=== PATIENT | female | born 1980 | race Caucasian/White ===

== ENCOUNTER 2018-05-08 05:10 | Emergency (ER) | payer BC, MEDICAID ==
--- NOTE | 2018-05-08 05:39 | ED Physician Chart ---
ED Chief Complaint/HPI - Patient Information Date Seen:: 05/08/18 Time Seen:: 05:25 Chief Complaint:: pain right knee area History of Present Illness:: Patient's had pain in her right knee area for last 6 months. 2-1/2 days ago she had low back pain and pleuritic chest pain for about 1-1/2 days which subsided spontaneously. Patient ran out of [facility] 2 1/2 weeks ago. 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 Allergies:: Allergies Allergy/AdvReac Type Severity Reaction Status Date / Time No Known Allergies Allergy Verified 05/08/18 05:19 Vitals:: Vital Signs - 8 hr 05/08/18 05:22 Temp 98.1 F HR 106 RR 20 BP 147/90 O2 Sat % 98 Historian:: Patient Review:: Nurse's Note Reviewed <Reji Campbell - Last Filed: 05/08/18 05:42> - Patient Information Allergies:: Allergies Allergy/AdvReac Type Severity Reaction Status Date / Time No Known Allergies Allergy Verified 05/08/18 05:19 Vitals:: Vital Signs - 8 hr 05/08/18 05/08/18 05/08/18 05:22 07:54 09:37 Temp 98.1 F 98.2 F 98.2 F HR 106 74 90 RR 20 22 BP 147/90 127/72 O2 Sat % 98 100 <J Carlos Case - Last Filed: 05/08/18 09:53> ED Review of Systems - Review of Systems General/Constitutional: No fever, No chills Skin: No skin lesions Head: No headache Eyes: No loss of vision ENT: No earache Neck: No neck pain, No swelling Cardio Vascular: No chest pain, No palpitations Pulmonary: Other (pleuritic chest pain was subsided) GI: No nausea, No vomiting, No diarrhea G/U: No dysuria Musculoskeletal: Bone or joint pain, Back pain Endocrine: No polyuria Psychiatric: No prior psych history, No depression, No anxiety Hematopoietic: No bruising, No lymphadenopathy Allergic/Immuno: No urticaria Neurological: No syncope, No focal symptoms <Reji Campbell - Last Filed: 05/08/18 05:42> ED Past Medical History - Past Medical History Past Medical History: Other (anemia) Family History: Other (adopted) Social History: Non Smoker, No Alcohol Surgical History: Cholecystectomy, , other ( section) Psychiatricy History: None Medication: Reviewed <Reji Campbell - Last Filed: 05/08/18 05:42> ED Physical Exam - Physical Examination General/Constitutional: Well-developed, well-nourished, Alert, No distress Other Gen/Cons comments:: Easy unlabored respirations; speaks normally Head: Atraumatic Eyes: Lids, conjuctiva normal, PERRL Skin: Nl inspection, No rash, No skin lesions, No ecchymosis ENMT: External ears, nose nl, TM canals nl, Nasal exam nl, Lips, teeth, gums nl Neck: No nuchal rigidity Respiratory: Nl effort/Exclusion, Clear to Auscultation Cardio Vascular: RRR, No murmur, gallop, rubs GI: No tenderness/rebounding/guarding, No organomegaly, No hernia, Normal BS's : No CVA tenderness Other Extremities comments:: No redness; 1.5 out of 4 bilateral pre-tibial pitting edema Neuro/Psych: No focal deficits <Reji Campbell - Last Filed: 05/08/18 05:42> ED Labs/Radiology/EKG Results - Lab Results Results: Laboratory Tests 05/08/18 05/08/18 05/08/18 05:40 05:40 05:40 WBC 6.5 RBC 3.99 Hgb 7.5 L* Hct 24.1 L MCV 60.5 L MCH 18.9 L MCHC Differential 31.1 RDW 17.8 Plt Count 481 H MPV 6.4 Add Manual Diff YES Band Neutrophils % 0 Neutrophils (Manual) 58 Lymphocytes 37 Monocytes 4 Eosinophils 1 Basophils 0 PT 9.9 INR 0.95 PTT (Actin FS) 22.5 L Sodium 138 Potassium 3.6 Chloride 105 Carbon Dioxide 25.0 Anion Gap 11.6 BUN 16 Creatinine 0.6 Est GFR ( Amer) > 60.0 Est GFR (Non-Af Amer) > 60.0 BUN/Creatinine Ratio 26.7 Glucose 129 H Calcium 9.3 Comments:: Reviewed - Radiology Results Comments:: U/S: no DVT <J Carlos Case - Last Filed: 05/08/18 09:53> ED Assessment - Assessment General Assessment: Endorsed to Dr. Case at 0700. <Reji Campbell - Last Filed: 05/08/18 05:42> ED Septic Shock - <6hrs of presentation: Vital Signs: Vital Signs - 8 hr 05/08/18 05:22 Temp 98.1 F HR 106 RR 20 BP 147/90 O2 Sat % 98 <Reji Campbell - Last Filed: 05/08/18 05:42> - . Is Septic Shock (SBP<90, OR Lactate>4 mmol\L) present?: No - <6hrs of presentation: Vital Signs: Vital Signs - 8 hr 05/08/18 05/08/18 05/08/18 05:22 07:54 09:37 Temp 98.1 F 98.2 F 98.2 F HR 106 74 90 RR 20 22 BP 147/90 127/72 O2 Sat % 98 100 <J Carlos Case - Last Filed: 05/08/18 09:53> ED Reassessment (Disposition) - Reassessment Reassessment:: pt has no evidence of bleeding anywhere; pt is asymptomatic upon discharge Reassessment Condition:: Improved - Diagnosis Diagnosis:: Leg Sprains and Strains; Anemia; Chest Pain-resolved; Right Knee Pain-resolved; Back Pain-resolved: Sprains and Strains; MS Type Chest Pain-resolved; Costochondritis - Aftercare/Follow up Instructions Aftercare/Follow-Up Instructions:: Counseled pt regarding lab results/diagnosis & need follow up, Refer to Discharge Instructions, Counseled pt & family regarding lab results/diagnosis & need follow up - Patient Disposition Discharge/Transfer:: Home Condition at Disposition:: Stable, Improved (U/S Care Instructions; Take all medications as prescribed; Be Compliant with all Medications; RTER prn if existing s/s reoccur and/or get worse and/or any other new s/s occur; ACIs given for all above Dx; Refer to Merchandise Deliverer/Shoe Dresser/Vascular Surgeon/ Ring Rolling Machine Operator MARCIO; F/U with PMD Today or as needed; RTER prn if concerned) <J Carlos Case - Last Filed: 05/08/18 09:53>
[2018-05-08 05:47] LABS: RED BLOOD COUNT 3.99 Mil/cmm (3.80-5.10)
[2018-05-08 05:49] LABS: HEMATOCRIT 24.1 % (41.0-60); MEAN CORPUSCULAR HEMOGLOBIN 18.9 pg (27.0-31.0); MEAN CORPUSCULAR HGB CONC 31.1 pg (28.0-36.0); MEAN PLATELET VOLUME 6.4 fl; PLATELET COUNT 481 Th/cmm (150-400); RED CELL DISTRIBUTION WIDTH 17.8 % (11.5-20.0); WHITE BLOOD COUNT 6.5 Th/cmm (4.8-10.8)
[2018-05-08 05:55] LABS: HEMOGLOBIN 7.5 gm/dL (12-16); MEAN CELL VOLUME 60.5 fl (81-100)
[2018-05-08 06:03] LABS: INR 0.95 (0.5-1.4); PROTHROMBIN TIME (TEST) 9.9 SECONDS (9.5-11.5)
[2018-05-08 06:04] LABS: ANION GAP 11.6 (7.0-16.0); BUN - UREA NITROGEN 16 mg/dL (7-25); CALCIUM SERUM 9.3 mg/dL (8.6-10.3); CHLORIDE 105 mEq/L (98-107); CREATININE - SERUM 0.6 mg/dL (0.6-1.2); GFR AFRICAN-AMERICAN > 60.0 ml/min (>90); GFR NON AFRICAN-AMERICAN > 60.0 ml/min; GLUCOSE 129 mg/dL (70-105); POTASSIUM SERUM 3.6 mEq/L (3.5-5.1); SODIUM SERUM 138 mEq/L (136-145)
[2018-05-08 06:40] LABS: BAND NEUTROPHILE 0 % (0-10); BASOPHIL 0 % (0-3); EOSINOPHIL 1 % (0-5); LYMPHOCYTE 37 % (20-50); MONOCYTE 4 % (2-10); NEUTROPHILS 58 % (40-80)
--- NOTE | 2018-05-08 12:09 | Diagnostic Imaging Report ---
Bilateral lower extremity Doppler venous ultrasound exam HISTORY: Pain/swelling Sonographic sector images were obtained through the deep venous systems of both legs. Associated Doppler data was obtained. The exam demonstrates patency of the common femoral, superficial femoral, popliteal, and posterior tibial veins bilaterally. Specifically, no thrombus is seen. There are normal compressibility and augmentation responses. IMPRESSION: Negative exam for deep vein thrombophlebitis.
== END 2018-05-08 09:30 | disposition home or self-care (01) ==
LOC: ER 05:10
DX: S83.91XA Sprain of unspecified site of right knee, initial encounter (principal); S86.911A Strain of unspecified muscle(s) and tendon(s) at lower leg level, right leg, initial encounter; M94.0 Chondrocostal junction syndrome [Tietze]; D64.9 Anemia, unspecified; Z90.49 Acquired absence of other specified parts of digestive tract; Z98.890 Other specified postprocedural states; X58.XXXA Exposure to other specified factors, initial encounter; Y93.89 Activity, other specified; Y92.89 Other specified places as the place of occurrence of the external cause; Y99.8 Other external cause status
CPT/HCPCS: 36415-UA; 80048-TC; 85007-TC; 85025-TC; 85610-TC; 85730-TC; 93970-TC-50; Z7502

== ENCOUNTER 2018-08-19 05:25 | Emergency (ER) | payer BC, MEDICAID ==
[2018-08-19 05:48] LABS: URINE SOURCE CLEAN C
[2018-08-19 05:58] LABS: URINE BILIRUBIN SMALL (NEGATIVE); URINE BLOOD NEGATIVE (NEGATIVE); URINE GLUCOSE (UA) NEGATIVE (NEGATIVE); URINE KETONE TRACE mg/dL (NEGATIVE); URINE LEUKOCYTE ESTERASE MODERATE (NEGATIVE); URINE MICROSCOPIC INDICATED? YES; URINE NITRATE POSITIVE (NEGATIVE); URINE PROTEIN TRACE mg/dL (NEGATIVE)
[2018-08-19 06:01] LABS: HEMATOCRIT 24.4 % (41.0-60); MEAN CORPUSCULAR HEMOGLOBIN 17.6 pg (27.0-31.0); MEAN CORPUSCULAR HGB CONC 30.1 pg (28.0-36.0); MEAN PLATELET VOLUME 7.2 fl; PLATELET COUNT 359 Th/cmm (150-400); RED BLOOD COUNT 4.16 Mil/cmm (3.80-5.10); RED CELL DISTRIBUTION WIDTH 19.1 % (11.5-20.0); WHITE BLOOD COUNT 6.4 Th/cmm (4.8-10.8)
[2018-08-19 06:02] LABS: URINE CLARITY HAZY (CLEAR); URINE COLOR YELLOW
[2018-08-19 06:09] LABS: URINE RBC NONE SEEN /hpf (0-5)
--- NOTE | 2018-08-19 06:09 | ED Physician Chart ---
ED Chief Complaint/HPI - Patient Information Date Seen:: 08/19/18 Time Seen:: 05:43 Chief Complaint:: abdominal pain History of Present Illness:: this is a 38 yo female with lower abdominal pain, pain on urination with nausea but no vomiting. the pain is 6/10 and it radiates to the back. she denies fever and . Allergies:: Allergies Allergy/AdvReac Type Severity Reaction Status Date / Time No Known Allergies Allergy Verified 05/08/18 05:19 Vitals:: Vital Signs - 8 hr 08/19/18 05:30 Temp 98.2 F HR 92 RR 19 BP 131/85 O2 Sat % 100 Historian:: Patient Review:: Nurse's Note Reviewed, Old Chart Reviewed ED Review of Systems - Review of Systems General/Constitutional: No fever, No chills, No weight loss, No weakness, No diaphoresis, No edema, No loss of appetite Skin: No skin lesions, No rash, No bruising Head: No headache, No light-headedness Eyes: No loss of vision, No pain, No diplopia ENT: No earache, No nasal drainage, No sore throat, No tinnitus Neck: No neck pain, No swelling, No thyromegaly, No stiffness, No mass noted Cardio Vascular: No chest pain, No palpitations, No PND, No orthopnea, No edema Pulmonary: No SOB, No cough, No sputum, No wheezing GI: Nausea, No vomiting, No diarrhea, Pain (lower abdomen), No melena, No hematochezia, No constipation, No hematemesis G/U: Dysuria, No frequency, No hematuria Musculoskeletal: No bone or joint pain, No back pain, No muscle pain Endocrine: No polyuria, No polydipsia Psychiatric: No prior psych history, No depression, No anxiety, No suicidal ideation Hematopoietic: No bruising, No lymphadenopathy Allergic/Immuno: No urticaria, No angioedema Neurological: No syncope, No focal symptoms, No weakness, No paresthesia, No headache, No seizure, No dizziness, No confusion, No vertigo ED Past Medical History - Past Medical History Obtainable: Yes Past Medical History: DVT/PE, Other (anemia) Family History: None Social History: Non Smoker, No Alcohol, No Drug Use, Employed Surgical History: Family Medical History - Family Member Mother History Unknown: Yes ED Physical Exam - Physical Examination General/Constitutional: Awake, Well-developed, well-nourished, Alert, No distress, GCS 15, Non-toxic appearing, Ambulatory Head: Atraumatic Eyes: Lids, conjuctiva normal, PERRL, EOMI Skin: Nl inspection, No rash, No skin lesions, No ecchymosis, Well hydrated, No lymphadenopathy ENMT: External ears, nose nl, Nasal exam nl, Lips, teeth, gums nl Neck: Nontender, Full ROM w/o pain, No JVD, No nuchal rigidity, No bruit, No mass, No stridor Respiratory: Nl effort/Exclusion, Clear to Auscultation, No Wheeze/Rhonchi/Rales Cardio Vascular: RRR, No murmur, gallop, rubs, NL S1 S2 GI: No tenderness/rebounding/guarding (lower abdominal tender without rebound), No organomegaly, No hernia, Normal BS's, Nondistended, No mass/bruits, No McBurney tenderness : No CVA tenderness Other comments:: bladder area tenderness Extremities: No tenderness or effusion, Full ROM, normal strength in all extremities, No edema, Normal digits & nails Neuro/Psych: Alert/oriented, DTR's symmetric, Normal sensory exam, Normal motor strength, Judgement/insight normal, Mood normal, Normal gait, No focal deficits Misc: Normal back, No paraspinal tenderness ED Labs/Radiology/EKG Results - Lab Results Results: Laboratory Tests 08/19/18 05:35 Urine Color YELLOW Urine Clarity HAZY Urine pH 6.0 Ur Specific [place] >= 1.030 Urine Protein TRACE Urine Glucose (UA) NEGATIVE Urine Ketones TRACE Urine Blood NEGATIVE Urine Nitrate POSITIVE H Urine Bilirubin SMALL H Urine Urobilinogen 2.0 Ur Leukocyte Esterase MODERATE H ED Assessment - Assessment General Assessment: urinary tract infection ED Septic Shock - . Is Septic Shock (SBP<90, OR Lactate>4 mmol\L) present?: No - <6hrs of presentation: Vital Signs: Vital Signs - 8 hr 08/19/18 05:30 Temp 98.2 F HR 92 RR 19 BP 131/85 O2 Sat % 100 ED Reassessment (Disposition) - Reassessment Reassessment Condition:: Improved - Aftercare/Follow up Instructions Aftercare/Follow-Up Instructions:: Counseled pt regarding lab results/diagnosis & need follow up, Refer to Discharge Instructions, Counseled pt & family regarding lab results/diagnosis & need follow up - Patient Disposition Discharge/Transfer:: Home Condition at Disposition:: Improved
[2018-08-19 06:10] LABS: URINE WBC 50-100 /hpf (0-5)
[2018-08-19 06:11] LABS: URINE BACTERIA 4+ /hpf (NONE SEEN); URINE EPITHELIAL CELLS MODERATE /lpf (FEW)
[2018-08-19 06:18] LABS: ALB/GLOB RATIO 1.3 (1.0-1.8); ALBUMIN 3.9 gm/dL (3.7-5.3); ALKALINE PHOSPHATASE 70 U/L (34-104); ANION GAP 12.8 (7.0-16.0); BILIRUBIN,TOTAL 0.2 mg/dL (0.3-1.0); BUN - UREA NITROGEN 18 mg/dL (7-25); CALCIUM SERUM 8.7 mg/dL (8.6-10.3); CARBON DIOXIDE 20.7 mEq/L (21.0-31.0); CHLORIDE 108 mEq/L (98-107); CREATININE - SERUM 0.6 mg/dL (0.6-1.2); GFR AFRICAN-AMERICAN > 60.0 ml/min (>90); GFR NON AFRICAN-AMERICAN > 60.0 ml/min; GLUCOSE 131 mg/dL (70-105); POTASSIUM SERUM 3.5 mEq/L (3.5-5.1); SGOT 11 U/L (13-39); SGPT/ALT 11 U/L (7-52); SODIUM SERUM 138 mEq/L (136-145); TOTAL PROTEIN,SERUM 6.8 gm/dL (6.0-8.3)
[2018-08-19 06:27] LABS: HEMOGLOBIN 7.3 gm/dL (12-16)
[2018-08-19 06:28] LABS: MEAN CELL VOLUME 58.5 fl (81-100)
[2018-08-19 06:35] LABS: AMPHETAMINE URINE POSITIVE (NEGATIVE); BARBITURATES URINE NEGATIVE (NEGATIVE); BENZODIAZEPINES QUAL URINE NEGATIVE (NEGATIVE); CANNABINOID THC NEGATIVE (NEGATIVE); COCAINE METABOLITE QUAL URINE NEGATIVE (NEGATIVE); METHADONE URINE NEGATIVE (NEGATIVE); METHAMPHETAMINES QUAL URINE POSITIVE (NEGATIVE); OPIATES (MORPHINE) QUAL. URINE NEGATIVE (NEGATIVE); PHENCYCLIDINE (PCP) URINE NEGATIVE (NEGATIVE); TRICYCLICS (TCA) QUAL. URINE NEGATIVE (NEGATIVE)
[2018-08-19 07:44] LABS: BASOPHIL 1 % (0-3); LYMPHOCYTE 40 % (20-50); MONOCYTE 6 % (2-10); NEUTROPHILS 53 % (40-80)
[2018-08-19 07:45] LABS: ANISOCYTOSIS 2+; PLATELET ESTIMATE ADEQUATE (NORMAL); POIKILOCYTOSIS 1+
[2018-08-19 07:46] LABS: OVALOCYTES 1+
[2018-08-20 08:06] LABS: IRON LC 10 ug/dL (27-159); TIBC (LC) 448 ug/dL (250-450); UIBC 438 ug/dL (131-425)
== END 2018-08-19 06:55 | disposition home or self-care (01) ==
LOC: ER 05:25
DX: N39.0 Urinary tract infection, site not specified (principal); Z86.718 Personal history of other venous thrombosis and embolism; Z98.890 Other specified postprocedural states
CPT/HCPCS: 99283; 96372 ×2; 36415; 85379; 83550; 80307; 85025; 87086; 81025; 83540; 80053; 85007; 81001; J1885; J0696; Z7502